=== PATIENT | female | born 2000 | race Caucasian/White ===

== ENCOUNTER 2022-10-29 09:58 | Outpatient (RCR) | payer OTHER, MEDICAID, SELFPAY ==
[2022-10-29 11:41] LABS: Hematocrit 35.2 % (37.0-47.0); Hemoglobin 11.7 g/dL (12.0-15.0)
[2022-10-29 12:01] LABS: Glucose 1 Hour PP 50gm Dose 92 mg/dL
[2022-10-29 12:38] LABS: HIV 1/2 Ab P24 Ag Result Negative (Negative)
[2022-10-29] MEDS: RHO(D) IMMUNE GLOBULIN 300 MCG/2 ML SYRINGE IM (16:38)
== END 2023-01-27 23:59 | disposition home or self-care (01) ==
LOC: ANHLAB 09:58
PROVIDERS: Visit Provider Advanced Practice Midwife
DX: Z11.4 Encounter for screening for human immunodeficiency virus [HIV] (principal); Z29.13 Encounter for prophylactic Rho(D) immune globulin; O36.0130 Maternal care for anti-D [Rh] antibodies, third trimester, not applicable or unspecified; Z3A.00 Weeks of gestation of pregnancy not specified
CPT/HCPCS: 36415; 82947; 85014; 85018; 85461; 86703; 86850; 86900; 86901; 90384; 96372; G0432; J2790

== ENCOUNTER 2022-11-15 11:13 | Observation (INO) | payer OTHER, MEDICAID, SELFPAY ==
[2022-11-15 11:35] VITALS: BP 125/73; PULSE 79
[2022-11-15 11:47] VITALS: BMI 29.6
--- NOTE | 2022-11-15 11:47 | OBADM ---
This patient, Crystal Odom, admitted to the OB room 116 for observation. Patient/family oriented to hospital policies and general routines including ID bracelet, bed and alarms, visiting hours, pain management, procedures, bathroom and other care routines, personal items, smoking policy, room service/diet, and visiting hours. Patient/Family are encouraged to report perceived risks to care and to ask questions if they do not understand what they are told or what they should do.
[2022-11-15 12:00] VITALS: BP 116/73; PULSE 71; RESP 16; TEMP 36.2
--- NOTE | 2022-11-23 07:52 | PM.OBTRLD ---
OB - Triage/Final Diagnosis Visit Information Comments/Additional reasons for admission: I have assessed the risk for this patient, Crystal Villanueva Lei, and determined that she would benefit from observation care. Final Diagnosis (1) Spotting affecting : Code(s): O26.859 - Spotting complicating , unspecified trimester Status: Acute
== END 2022-11-15 14:16 | disposition home or self-care (01) ==
PROVIDERS: Admitting Provider Obstetrics & Gynecology; Visit Provider Obstetrics & Gynecology
DX: O26.853 Spotting complicating pregnancy, third trimester (principal); Z3A.30 30 weeks gestation of pregnancy
CPT/HCPCS: G0378; G0379

== ENCOUNTER 2022-11-28 14:01 | Outpatient (CLI) | payer OTHER, MEDICAID, SELFPAY ==
[2022-11-28 14:34] VITALS: BP 115/72; PULSE 69
[2022-11-28 14:47] LABS: Basophils Percent Auto 0.4 % (0.2-1.2); Eosinophils Absolute Auto 0.1 K/mm3 (0-0.3); Eosinophils Percent Auto 1.6 % (0-4.4); Hematocrit 32.9 % (37.0-47.0); Hemoglobin 11.3 g/dL (12.0-15.0); Immature Granulocyte Absolute 0.21 K/mm3 (0.00-0.031); Immature Granulocyte Percent A 2.4 % (0-0.5); Lymphocytes Percent Auto 15.7 % (18.3-44.2); Mean Corpuscular HGB Conc 34.3 g/dl (32-36); Mean Corpuscular Hemoglobin 31.6 pg (26-34); Mean Corpuscular Volume 91.9 fl (80-100); Mean Platelet Volume 10.8 fl (7.4-10.4); Monocytes Absolute Auto 0.7 K/mm3 (0.1-0.6); Monocytes Percent Auto 8.3 % (2.6-8.5); Neutrophils Absolute Auto 6.4 K/mm3 (1.3-6.7); Neutrophils Percent Auto 71.6 % (45.5-73.1); Platelet Count Result 291 k/mm3 (150-375); Red Blood Count 3.58 M/mm3 (4.2-5.4); White Blood Count 8.9 K/mm3 (4.5-10.0)
[2022-11-28 14:55] LABS: Alanine Aminotransferase 255 U/L (6-35); Albumin Level 3.5 g/dL (3.5-5.1); Alkaline Phosphatase 148 U/L (38-126); Anion Gap 6 mmol/L (8-16); Aspartate Amino Transferase 112 U/L (14-36); Bilirubin,Total 0.4 mg/dL (0.2-1.3); Blood Urea Nitrogen 8 mg/dL (7-17); Calcium 8.8 mg/dL (8.4-10.2); Carbon Dioxide 21 mmol/L (22-30); Chloride 107 mmol/L (98-107); Estimated Glomerular Filt Rate > 60; Glucose 101 mg/dL (65-110); Potassium 3.9 mmol/L (3.4-5.0); Sodium 134 mmol/L (137-145)
[2022-11-28 15:11] VITALS: BP 115/72; PULSE 87
== END 2022-11-28 15:29 ==
LOC: ANHOBOP 14:10 → ANHOBPP 14:26
PROVIDERS: Visit Provider Advanced Practice Midwife
DX: O13.9 Gestational [pregnancy-induced] hypertension without significant proteinuria, unspecified trimester (principal); Z3A.00 Weeks of gestation of pregnancy not specified
CPT/HCPCS: 36415; 59025; 80053; 85025; 99199

== ENCOUNTER 2023-01-08 14:26 | Outpatient (RCR) | payer OTHER, MEDICAID, SELFPAY ==
[2022-12-07 15:06] VITALS: BP 106/64; PULSE 72
[2023-01-04 16:33] VITALS: BP 118/66; PULSE 98
--- NOTE | ~2023-01-08 | US_ITS ---
EXAMINATION: US OB BPP wo non-stress DATE: 01/08/2023 14:59 INDICATION: Cholestasis. Third trimester. TECHNIQUE: Real-time pelvic ultrasound was performed. COMPARISON: None. FINDINGS: There is a single living fetus in vertex presentation. The placenta is posterior. heart rate i s 143 beats per minute (bpm). Biophysical profile performed by the technologist: breathing (30 sec sustained breathing in 30 minutes): 2 out of 2 movement (3 gross body movements in 30 minutes): 2 out of 2 tone (one episode of fmccvsx-zodqlbtpw-blithjy limb movement): 2 out of 2 Amniotic fluid pocket (2 cm): 2 out of 2 Total score: 8 out of 8 IMPRESSION: 1. Single living fetus in vertex presentation. 2. Biophysical profile 8 out of 8. Reviewed, dictated and finalized at location E.
--- NOTE | 2023-01-08 15:09 | PC.NURSE ---
Pt. had NST in office, sent over here for BPP. BPP done, 11/10 and DC'd home.
== END 2023-02-18 11:26 | disposition home or self-care (01) ==
LOC: ANHOBOP 14:26
PROVIDERS: Visit Provider Advanced Practice Midwife
DX: O26.613 Liver and biliary tract disorders in pregnancy, third trimester (principal); Z3A.33 33 weeks gestation of pregnancy; Z3A.37 37 weeks gestation of pregnancy
CPT/HCPCS: 59025; 76819

== ENCOUNTER 2023-01-10 18:07 | Inpatient (IN) | payer OTHER, MEDICAID, SELFPAY ==
[2023-01-10 18:45] VITALS: BMI 31.2
--- NOTE | 2023-01-10 18:50 | LDADM ---
This patient, Crystal Odom, was admitted to Labor/Delivery/Recovery 107 on 01/10/23 at 18:07. Plans for labor, pain management and were discussed with patient. Patient/family oriented to hospital policies and general routines including ID bracelet, bed and alarms, visiting hours, pain management, procedures, bathroom and other care routines, personal items, smoking policy, room service/diet and guest tray routines, infant security routines, and visiting hours. Patient/Family are encouraged to report perceived risks to care and to ask questions if they do not understand what they are told or what they should do. See OBIX for further documentation.
[2023-01-10 19:00] VITALS: BP 120/79; PULSE 61; TEMP 36.6
[2023-01-10 19:06] LABS: Basophils Percent Auto 0.2 % (0.2-1.2); Eosinophils Absolute Auto 0.1 K/mm3 (0-0.3); Eosinophils Percent Auto 0.6 % (0-4.4); Hematocrit 33.2 % (37.0-47.0); Hemoglobin 10.9 g/dL (12.0-15.0); Immature Granulocyte Absolute 0.12 K/mm3 (0.00-0.031); Immature Granulocyte Percent A 1.4 % (0-0.5); Lymphocytes Absolute Auto 1.77 K/mm3 (0.9-3.2); Mean Corpuscular HGB Conc 32.8 g/dl (32-36); Mean Corpuscular Hemoglobin 29.6 pg (26-34); Mean Corpuscular Volume 90.2 fl (80-100); Mean Platelet Volume 11.4 fl (7.4-10.4); Monocytes Absolute Auto 0.6 K/mm3 (0.1-0.6); Monocytes Percent Auto 7.4 % (2.6-8.5); Neutrophils Absolute Auto 5.8 K/mm3 (1.3-6.7); Neutrophils Percent Auto 69.4 % (45.5-73.1); Platelet Count Result 331 k/mm3 (150-375); Red Blood Count 3.68 M/mm3 (4.2-5.4); Red Cell Distribution Width 12.3 % (11.5-14.5); White Blood Count 8.4 K/mm3 (4.5-10.0)
[2023-01-10] MEDS: OXYTOCIN 30 UNITS/NS 500 ML 30 UNITS/500 ML BAG 6 UNITS IV CONT (19:17)
[2023-01-10] MEDS: LACTATED RINGERS 1,000 ML 125 ML IV CONT (19:17)
[2023-01-10 22:09] VITALS: BP 131/79; PULSE 65
[2023-01-10 23:00] VITALS: TEMP 36.6
[2023-01-10 23:46] VITALS: BP 116/66; PULSE 54
[2023-01-11] VITALS (235 sets, daily range): BP systolic 94–145; BP diastolic 53–97; PULSE 47–147; RESP 20; TEMP 36.1–37; O2SAT 82–100
[2023-01-11] MEDS: LACTATED RINGERS 1,000 ML 125 ML IV CONT (02:47)
--- NOTE | 2023-01-11 07:14 | WPDANESEPP ---
Anes - Eval Pre Procedure Procedure: labor epidural Date/Time: 01/11/23 07:14 Preop Diagnosis: labor pain Pre Op Diagnosis: IOL Patient Data Age: 23 Gender: F Height: 1.6 m Weight: 80 kg Last Vital Signs Temp 36.1 C L 01/11/23 06:15 Pulse 81 01/11/23 07:01 BP 128/76 01/11/23 07:01 O2 Del Method Room Air 01/10/23 18:45 Allergies Allergy/AdvReac Type Severity Reaction Status Date / Time No Known Allergies Allergy Verified 01/10/23 20:05 Home Medications Medication Instructions Recorded Confirmed Type PNV 153-FA 400 mcg-om3 35 mg-dha 2 tablet PO DAILY 11/15/22 12/26/22 History 25 mg-epa 5 mg-fish oil chew tablet ( Gummies) sertraline 50 mg tablet 50 mg PO DAILY 11/15/22 12/26/22 History ursodiol 300 mg capsule 30 mg PO TID 12/26/22 12/26/22 History hydroxyzine HCl 25 mg tablet 25 mg PO PRN PRN Itching 01/10/23 01/10/23 History Laboratory Tests 01/10/23 19:02 WBC 8.4 K/mm3 (4.5-10.0) RBC 3.68 L M/mm3 (4.2-5.4) Hgb 10.9 L g/dL (12.0-15.0) Hct 33.2 L % (37.0-47.0) MCV 90.2 fl (80-100) MCH 29.6 pg (26-34) MCHC 32.8 g/dl (32-36) RDW 12.3 % (11.5-14.5) Plt Count 331 k/mm3 (150-375) MPV 11.4 H fl (7.4-10.4) Immature Gran % (Auto) 1.4 H % (0-0.5) Neut % (Auto) 69.4 % (45.5-73.1) Lymph % (Auto) 21.0 % (18.3-44.2) [place] % (Auto) 7.4 % (2.6-8.5) Eos % (Auto) 0.6 % (0-4.4) Baso % (Auto) 0.2 % (0.2-1.2) Lymph # (Auto) 1.77 K/mm3 (0.9-3.2) [place] # (Auto) 0.6 K/mm3 (0.1-0.6) Eos # (Auto) 0.1 K/mm3 (0-0.3) Baso # (Auto) 0.0 K/mm3 (0.0-0.1) Abs Immat Gran (auto) 0.12 H K/mm3 (0.00-0.031) Absolute Neuts (auto) 5.8 K/mm3 (1.3-6.7) Absolute Nucleated RBC 0.0 K/mm3 (0.0-0.012) Nucleated RBC % 0.0 % (0.0-0.2) RPR Pending Blood Type B Negative Antibody Screen Positive Antibody Identification Passive Due to RH Imm Glob Antigen Identification Cancelled MIKE, IgG Interpret Not Performed MIKE, Poly Interpret Neg MIKE, Complement Interp Not Performed Patient hx anesthesia problems: none Family hx anesthesia problems: none Results Review: All pre-operative results and documents have been reviewed as part of the pre-operative evaluation. [facility] Family History Family History Mother Heart valve replaced Grandparent Diabetes mellitus Grandparent Cancer Social History Social History Smoking status: Never smoker Substance use: never Lack of Transportation: No Lack of Food: Never True Current Housing: I Have Housing Concerned About Future Housing: No Difficulty Paying Gas/Electric Bills: No Difficulty Paying for Meds: No Currently Unemployed: No Education: Associate Degree Difficulty w/ Childcare or Family Care: No Spiritual care concerns: No Exam Day of Procedure 01/11/23 07:14 Patient weight: normal Heart: regular rate and rhythm Lungs: clear to auscultation and normal air movement Airway: Mallampati scale class II Neurological: alert and oriented
--- NOTE | 2023-01-11 07:33 | WPDOBADMIT ---
Obstetrics - Admit Note Admission Note: record reviewed. No pertinent additions to the history and/or any subsequent changes in the physical findings that are not consistent with the expected course of the were found. IOL for cholestasis in , anticipate vaginal delivery Additions to the history and/or subsequent changes in the physical findings follow. None.
--- NOTE | 2023-01-11 08:10 | PM.OBPNLAB ---
Pain Control Date/time seen: 01/11/23 08:10 Comments: SVE /0 AROM minimal amount of clear, odorless fluid, anticipate vaginal delivery
[2023-01-11] MEDS: hydrOXYzine HCL 25 MG TABLET PO (11:33)
[2023-01-11] MEDS: ursodioL 300 MG CAPSULE PO (12:35)
[2023-01-11 12:40] LABS: Rapid Plasma Reagin Non-Reactive (NonReactive)
--- NOTE | 2023-01-11 18:54 | PM.OBPRVD ---
OB - Delivery Note Procedure Delivery date: 01/11/23 Procedure: Events: Other (cholestasis) Induction method: AROM and Per Pitocin Protocol Delivery monitor: External FHT and Internal Uterine Route of delivery: Episiotomy description: None Laceration Description: None Specimen: Yes Quantitative Blood Loss (ml): 100 Anesthesia type: Epidural Disposition: Floor [place] Baby Date of : 01/11/23 Time of : 18:42 Weeks of gestation at delivery: 38 Infant gender: Female presentation: vertex position: Left Occiput Anterior Placenta delivery description: Spontaneous Cord Vessel Description: 3 Vessels, Clamped/Cut and Delayed Cord Clamping score one minute: 8 score five minutes: 9 Narrative: mother and baby skin to skin in stable condition
[2023-01-11] MEDS: OXYTOCIN 30 UNITS/NS 500 ML 30 UNITS/500 ML BAG 125 UNITS IV CONT (19:18)
[2023-01-11] MEDS: IBUPROFEN 600 MG TABLET PO (21:25)
[2023-01-12] VITALS: BP 119/70; PULSE 66; RESP 18; TEMP 36.4; O2SAT 97
[2023-01-12 05:27] LABS: Hematocrit 29.1 % (37.0-47.0); Hemoglobin 9.4 g/dL (12.0-15.0)
--- NOTE | 2023-01-12 08:20 | PM.OBPNVD ---
OB - PN: Subj Subjective Date/time seen: 01/12/23 08:20 Patient comments: no complaints, pain well controlled, incisional pain, tolerating diet and flatus present OB - PN: Obj Data Labs 01/12/23 04:14 Labs: Laboratory Results - last 24 hr 01/10/23 01/12/23 19:02 04:14 Hgb 9.4 L Hct 29.1 L RPR Non-reactive OB - PN A/P Plan day: 1 Plan: routine care Comments: No problems, routine care Time Spent With Patient Time: Total time spent is greater than 50% in coordination of care (as documented) at patient's floor/unit and/or counseling patient: Exam Const: General: comfortable, no acute distress and alert Resp: Effort & Inspection: normal respiratory effort Auscultation: no crackles, no rales and no rhonchi Cardio: Rate: regular rate Heart sounds: no click, no murmurs and no rubs GI: Inspection: non-distended GI Palp: No Tenderness to palpation present (GI) Auscultation: normal bowel sounds Other: Incision - CDI Extrem: General: normal to inspection, no pedal edema and no calf tenderness
[2023-01-12] MEDS: MULTIVIT/MIN/PREN/FOL AC/IRON TABLET 1 TAB PO (09:31)
[2023-01-12] MEDS: POLYSACCHARIDE IRON COMPLEX 150 MG CAPSULE PO ×2 (09:32→16:40)
[2023-01-12] MEDS: IBUPROFEN 600 MG TABLET PO ×2 (09:32→16:40)
[2023-01-12] MEDS: DOCUSATE SODIUM 100 MG CAPSULE PO ×2 (09:32→16:40)
[2023-01-12] MEDS: SERTRALINE HCL 50 MG TABLET PO (09:32)
[2023-01-12 09:35] VITALS: BP 130/63; PULSE 94; RESP 18; TEMP 37.6; O2SAT 98
--- NOTE | 2023-01-12 10:38 | WPDANLDPN2 ---
Anes-Prog Note L&D Date/Time: 01/12/23 10:38 Comfortable throughout: labor and delivery Neuraxial method: epidural Epidural/Spinal procedure site: clean & non-tender Neuro status: Neuro function grossly intact. Cardiovascular status: normal Respiratory status: normal Airway patency: baseline Mental status: baseline Post-Op hydration status: normal Vital Signs: Last Vital Signs Temp 99.6 F 01/12/23 09:35 Pulse 94 01/12/23 09:35 Resp 18 01/12/23 09:35 BP 130/63 01/12/23 09:35 Pulse Ox 98 01/12/23 09:35 O2 Del Method Room Air 01/10/23 18:45 Pain score (VAS): 0 I/O: Intake & Output 01/11/23 01/12/23 01/12/23 23:59 07:59 15:59 Output Total 115 Balance -115 Post-procedural complaints: none Patient feedback: Patient satisfied with anesthetic care.
[2023-01-12] MEDS: ursodioL 300 MG CAPSULE PO ×2 (11:58→16:41)
[2023-01-12 12:28] VITALS: BP 122/54; PULSE 67; RESP 16; TEMP 36.3; O2SAT 98
[2023-01-12 16:43] VITALS: BP 124/49; PULSE 73; RESP 18; TEMP 36.9; O2SAT 99
[2023-01-12 20:25] VITALS: BP 121/77; PULSE 59; RESP 16; TEMP 36.5; O2SAT 99
[2023-01-13] MEDS: WITCH HAZEL 40 PADS 1 PAD TOPICAL (05:35)
--- NOTE | 2023-01-13 07:38 | PM.OBPNVD ---
OB - PN: Subj Subjective Date/time seen: 01/13/23 07:38 Interval history: pp day 2 plan d/c home OB - PN: Obj Data Labs 01/12/23 04:14 OB - PN A/P Plan day: 2 Plan: routine care and discharge home Time Spent With Patient Time: Total time spent is greater than 50% in coordination of care (as documented) at patient's floor/unit and/or counseling patient: Review of Systems Review of Systems: All systems reviewed & are unremarkable except as noted in HPI and below Exam Const: General: cooperative, healthy appearing and comfortable Chest: Chest palpation & inspection: normal inspection of the chest Resp: Effort & Inspection: normal respiratory effort Cardio: Rate: regular rate Rhythm: regular rhythm GI: Other: soft Skin: General skin exam: normal color Neuro: General: patient oriented x3
--- NOTE | 2023-01-13 07:40 | PM.OBDSVD ---
DS: Admitting Diagnosis Discharge Date 01/13/23 Admitting Diagnosis IOL DS: Discharge Diagnosis Discharge Diagnosis (1) Vaginal delivery: Code(s): O80 - Encounter for full-term uncomplicated delivery Status: Acute OB - DS: Summary OB Procedures : None OB Procedures Intrapartum: Spontaneous Vag Delivery OB Procedures: : None Time Spent with Patient Time attestation: Total time spent providing and/or coordinating discharge services: DS: Data Data Completed and Pending Pending studies at discharge: Pending at discharge 01/11/23 19:23 Surgical [PTH] Routine Discharge Plan Discharge Attending physician on discharge: Julia Watson Discharging Clinician: Rachel Melendez Patient Disposition: Home, Self-Care Activity: pelvic rest Diet: regular Patient Instructions: Antibiotic Form Stand Alone Forms: General Discharge Information Follow-up/Referrals: Rachel Melendez, ROCKM [Certified Nurse Employment Office Clerk] - 4 Weeks Discharge Medications: New ibuprofen 600 mg Tablet 600 mg PO Q6H PRN (Reason: Cramping) Qty: 30 0RF Continued sertraline 50 mg tablet 50 mg PO DAILY Gummies 400 mcg-35 mg- 25 mg-5 mg Tablet,Chewable 2 tablet PO DAILY ursodiol 300 mg capsule 30 mg PO TID hydroxyzine HCl 25 mg tablet 25 mg PO PRN PRN (Reason: Itching) Date of admission: 01/10/23 18:07 Primary Care Provider: PHYSICIAN,PLATFORM STAPLER Admitting Provider: Julia Watson Attending physician on admission: Julia Watson Condition: Stable
[2023-01-13 08:00] VITALS: BP 126/60; PULSE 58; RESP 18; TEMP 37.1; O2SAT 99
[2023-01-13] MEDS: DOCUSATE SODIUM 100 MG CAPSULE PO (09:41)
[2023-01-13] MEDS: IBUPROFEN 600 MG TABLET PO (09:41)
[2023-01-13] MEDS: ursodioL 300 MG CAPSULE PO (09:42)
[2023-01-13] MEDS: POLYSACCHARIDE IRON COMPLEX 150 MG CAPSULE PO (09:42)
[2023-01-13] MEDS: MULTIVIT/MIN/PREN/FOL AC/IRON TABLET 1 TAB PO (09:43)
[2023-01-13] MEDS: SERTRALINE HCL 50 MG TABLET PO (09:43)
--- NOTE | 2023-01-13 12:34 | PC.NURSE ---
1030 Patient viewed the discharge video Mother & Baby Care, The First Two Weeks . Patient was given the opportunity and encouraged to ask questions. Patient verbalized understanding of information shared and has been given the mother/baby guide for home reference.
--- NOTE | 2023-01-13 13:21 | PC.NURSE ---
[id number] Mother verbalizes she is able to independently latch with appropriate positioning/alignment and states all is going well. She denies any nipple discomfort and is responsively . is currently meeting outcomes for weight, output, jaundice and feeding frequencies of 8-12 times in 24 hours. Mother declines a assessment at this time. Mother states she sees her infant swallowing at the breast, feeds on demand, practices [id number]-[id number], has no pain with . There is a request for a pump flange fitting. Mother's nipple was measured and she was recommended to purchase a 20-21mm flange for her Spectra pump. Mother is encouraged to call for assistance if her infant doesn?t latch or there is discomfort with latching. Mother voiced understanding of information shared and the mom reminded of the mom/baby guide for an additional resource.
== END 2023-01-13 12:36 | disposition home or self-care (01) | DRG 807 ==
LOC: ANHLDR 18:53 → ANHOB2 01-11 22:13
PROVIDERS: Advanced Practice Midwife; Admitting Provider Obstetrics & Gynecology; Visit Provider Obstetrics & Gynecology
DX: O26.643 Intrahepatic cholestasis of pregnancy, third trimester (principal); Z37.0 Single live birth; Z3A.38 38 weeks gestation of pregnancy
CPT/HCPCS: 36415; 85014; 85018; 85025; 86592; 86850; 86880; 86900; 86901; 88307; A9270; J2590; J2795; J7120